=== PATIENT | male | born 1965 | race Caucasian/White ===

== ENCOUNTER 2021-02-16 10:16 | Emergency (ER) | payer OTHER ==
[~2021-02-16] VITALS: Ht 160 cm; Wt 78.2 kg
[~2021-02-16 10:16] MED LIST: B CO1CAP6 PO; PHOSLOC PO
[2021-02-16 10:20] VITALS: BP 122/83
== END 2021-02-16 10:56 | disposition home or self-care (01) ==
LOC: EMS 10:16
DX: L02.214 Cutaneous abscess of groin (principal); N18.6 End stage renal disease; Z99.2 Dependence on renal dialysis
CPT/HCPCS: 99283; Z7502